=== PATIENT | male | born 1990 | race Caucasian/White ===

== ENCOUNTER 2016-10-30 23:40 | Emergency (ER) | payer OTHER ==
[~2016-10-30] VITALS: Ht 182.9 cm; Wt 95.3 kg
[2016-10-31] MEDS ORDERED: GI COCKTAIL 50ML BTL(HYOSCYAMINE/MAALOX/LIDOCAINE VISCOUS)(1:3:1) PO ONE (02:15)
[2016-10-31] MEDS ORDERED: PANTOPRAZOLE 40MG INJ (PROTONIX) (C9113) IV ONE (03:00)
[2016-10-31] MEDS ORDERED: ONDANSETRON 4MG/2ML VIAL (J2405) IV ONE (03:00)
[2016-10-31] MEDS ORDERED: NS 1,000 ML IV ONE (03:00)
[2016-10-31] MEDS ORDERED: ISOVUE-370 76% 100ML VIAL (Q9967) As Ordered ONE (03:09)
[2016-10-31] MEDS: MORPHINE 4 MG/ML 1ML SYRINGE IV PRN ×2 (03:37→04:00)
[2016-10-31 03:41] LABS: BASO % 0.7 % (0.0-1.0); EOS # 0.1 K/mm3 (0.0-0.50); EOS % 2.1 % (0.0-3.0); LARGE UNSTAINED CELL # 0.1 K/mm3 (0.0-0.4); LARGE UNSTAINED CELL % 2.2 % (0.0-4.0); LYMPH # 2.4 K/mm3 (1.5-6.5); MEAN CORPUSCULAR HEMOGLOBIN 29.3 pg (27.0-33.0); MEAN CORPUSCULAR HGB CONC 34.2 g/dl (32.0-36.5); MEAN CORPUSCULAR VOLUME 85.7 fl (80.0-96.0); MONO # 0.4 K/mm3 (0.0-0.8); MONO % 6.9 % (0.0-5.0); NEUTROPHILS # 3.3 K/mm3 (1.8-7.7); NEUTROPHILS % 52.1 % (36.0-66.0); PLATELET COUNT, AUTOMATED 219 k/mm3 (150-450); RED CELL DISTRIBUTION WIDTH 12.5 % (11.5-14.5); WHITE BLOOD COUNT 6.3 K/mm3 (4.0-10.0)
[2016-10-31 04:49] LABS: ALBUMIN 3.6 GM/DL (3.2-5.2); ALBUMIN/GLOBULIN RATIO 1.13 (1.00-1.93); ALKALINE PHOSPHATASE 70 U/L (45-117); ALT/SGPT 36 U/L (12-78); ANION GAP 6 MEQ/L (8-16); AST/SGOT 20 U/L (15-37); BILIRUBIN,DIRECT < 0.1 MG/DL (0.0-0.2); BILIRUBIN,TOTAL 0.2 MG/DL (0.2-1.0); BLOOD UREA NITROGEN 13 MG/DL (7-18); CALCIUM LEVEL 8.1 MG/DL (8.5-10.1); CARBON DIOXIDE LEVEL 28 MEQ/L (21-32); CHLORIDE LEVEL 105 MEQ/L (98-107); CREATININE FOR GFR 0.71 MG/DL (0.70-1.30); GLOMERULAR FILTRATION RATE > 60.0 (>60); GLUCOSE, FASTING 89 MG/DL (70-105); POTASSIUM SERUM 4.3 MEQ/L (3.5-5.1); SODIUM LEVEL 139 MEQ/L (136-145); TOTAL PROTEIN 6.8 GM/DL (6.4-8.2)
[2016-10-31] MEDS ORDERED: CARA1TAB2 PO (05:49)
[2016-10-31] MEDS ORDERED: PROT1TAB2 PO (05:49)
[2016-10-31] MEDS ORDERED: PEPC1TAB4 PO (05:49)
[2016-10-31] MEDS ORDERED: FAMOTIDINE 20 MG TAB PO ONE (06:00)
[2016-10-31] MEDS ORDERED: SUCRALFATE 1 GM TAB PO ONE (06:00)
[2016-10-31 06:14] VITALS: BP 132/78
--- NOTE | 2016-10-31 07:54 | REPUSA ---
CLINICAL HISTORY: Abdominal pain. TECHNIQUE: Multiple axial, sagittal and coronal CT images were obtained through the abdomen and pelvi s after administration of intravenous contrast material. COMMENTS: The liver is of uniform attenuation without mass or defect. There is no intra or extrahepatic biliary ductal dilatation. The spleen is normal. The gallbladder is within normal limits. The pancreas is of normal contour and attenuation characteristics. There is no evidence of adrenal mass. Both kidneys demonstrate prompt and equal nephrograms. The kidneys are normal in size, shape and conf iguration. There is no evidence of renal or ureteral mass. No renal or ureteral calculi are identifie d. There is no hydroureter or hydronephrosis. No evidence for appendicitis. There is no bowel wall thickening. No evidence for small or large sheron l obstruction. There is no evidence of abdominal ascites or lymphadenopathy. There is no evidence of intrinsic or extrinsic bladder mass. There is no pelvic ascites or lymphadeno karthik. Moderate large bowel fecal stasis. Diffuse thickening of the bladder. No evidence of pleural or parenchymal mass. There are no pleural effusions. There is an appendicolth without inflammatory changes. The bony structures are free of lytic or blastic lesions. Multilevel degenerative changes are seen in volving the thoracolumbar spine. Scattered calcifications are seen involving the aorta and major bran ches compatible with atherosclerosis. IMPRESSION: Large bowel fecal stasis. Thickened bladder. Underdistention versus mild cystitis. Thank you for your kind referral of this patient.
== END 2016-10-31 06:52 | disposition home or self-care (01) ==
LOC: M ED 10-31 00:25
DX: R10.13 Epigastric pain (principal)
CPT/HCPCS: 36415; 74177; 80048; 80076; 83690; 85025; 93041; 96374; 96375; 99284; C9113; J2405; Q9967

== ENCOUNTER 2017-03-26 22:22 | Emergency (ER) | payer OTHER ==
[~2017-03-26] VITALS: Ht 182.9 cm; Wt 100.0 kg
[~2017-03-26 22:22] MED LIST: CARA1TAB6 PO; PEPC1TAB4 PO; PROT1TAB2 PO
[2017-03-26 22:23] VITALS: BP 134/77
[2017-03-26] MEDS ORDERED: BACT800T5 PO (22:32)
[2017-03-26] MEDS ORDERED: VOLT1GEL15 TD (22:32)
== END 2017-03-27 01:00 | disposition left against medical advice (07) ==
LOC: M ED 22:22
DX: L98.9 Disorder of the skin and subcutaneous tissue, unspecified (principal); Z53.21 Procedure and treatment not carried out due to patient leaving prior to being seen by health care provider

== ENCOUNTER 2017-05-11 18:28 | Emergency (ER) | payer OTHER ==
[~2017-05-11] VITALS: Ht 182.9 cm; Wt 101.0 kg
[~2017-05-11 18:28] MED LIST changes: +BACT800T5 PO; +VOLT1GEL15 TD
[2017-05-11 18:29] VITALS: BP 135/90
[2017-05-11] MEDS ORDERED: BACTRIM 160MG/800MG DS TAB PO ONE (19:30)
[2017-05-11] MEDS ORDERED: BACT800T5 PO (19:34)
== END 2017-05-11 20:01 | disposition home or self-care (01) ==
LOC: M ED 18:28
DX: L03.113 Cellulitis of right upper limb (principal); Z86.14 Personal history of Methicillin resistant Staphylococcus aureus infection

== ENCOUNTER 2017-10-01 23:51 | Emergency (ER) | payer OTHER ==
[2017-10-02] MEDS: BACTRIM 160MG/800MG DS TAB PO (05:50)
== END 2017-10-02 05:59 | disposition home or self-care (01) ==
LOC: M ED 23:51
DX: L03.314 Cellulitis of groin (principal); Z86.14 Personal history of Methicillin resistant Staphylococcus aureus infection
CPT/HCPCS: 99283

== ENCOUNTER 2018-02-16 00:33 | Emergency (ER) | payer OTHER ==
[2018-02-16] MEDS: IBUPROFEN 600 MG TAB PO (01:42)
== END 2018-02-16 01:49 | disposition home or self-care (01) ==
LOC: M ED 00:33
DX: G56.02 Carpal tunnel syndrome, left upper limb (principal)
CPT/HCPCS: 99283